=== PATIENT | male | born 1950 | race Caucasian/White ===

== ENCOUNTER → 2024-09-22 | Outpatient (CLI) | payer MEDICARE, SELFPAY ==
--- NOTE | 2024-09-22 10:50 | XR_ITS ---
Examination: Humerus 2 views left Technique: Humerus, AP lateral 2 views Date and time of exam: September 22, 2024 1107 hours INDICATIONS: Left arm pain one month. FINDINGS: No shoulder or humeral shaft fracture Moderate to advanced narrowing glenohumeral joint IMPRESSION: Moderate to advanced narrowing glenohumeral joint
--- NOTE | 2024-09-22 10:50 | XR_ITS ---
Examination: Shoulder,left, 3 views Technique: Shoulder AP internal rotation, AP external rotation, Y view shoulder, 3 views Exam date and time :September 22, 2024 1107 hours INDICATIONS: Left shoulder pain one month. FINDINGS: Moderate to advanced narrowing glenohumeral joint No shoulder fracture or dislocation 3 mm offset at the AC joint, clinical correlation advised IMPRESSION: Moderate to advanced osteoarthritis glenohumeral joint
== END | disposition home or self-care (01) ==
PROVIDERS: Referring Provider Nurse Practitioner Family; Visit Provider Nurse Practitioner Family
DX: M19.012 Primary osteoarthritis, left shoulder (principal); M25.812 Other specified joint disorders, left shoulder
CPT/HCPCS: 73030; 73060